=== PATIENT | female | born 1930 | race Two or more races ===

== ENCOUNTER → 2017-07-17 | Emergency (ER) | payer OTHER ==
[~2017-07-17] VITALS: Ht 165.1 cm; Wt 81.6 kg
[~2017-07-17] MED LIST: ADULT LOW DOSE81 MG; DILTIAZEM 24HR120 MG; GLIMEPIRIDE4 MG; HYZAAR 100/25 T1 TAB; LEVOTHROID137 MCG; METFORMIN HCL1000 MG; PERCOCET 5-3251 EACH PO; PNEU16DI2; SIMVASTATIN40 MG; SYNTHROID50 MCG
== END | disposition home or self-care (01) ==
LOC: ER 10:24
DX: S82.841A Displaced bimalleolar fracture of right lower leg, initial encounter for closed fracture (principal); S92.512A Displaced fracture of proximal phalanx of left lesser toe(s), initial encounter for closed fracture; M85.871 Other specified disorders of bone density and structure, right ankle and foot; W01.198A Fall on same level from slipping, tripping and stumbling with subsequent striking against other object, initial encounter; Y93.89 Activity, other specified; Y92.018 Other place in single-family (private) house as the place of occurrence of the external cause; Y99.8 Other external cause status

== ENCOUNTER 2017-07-20 15:23 | Outpatient (CLI) | payer OTHER ==
[~2017-07-20 15:23] MED LIST changes: -PERCOCET 5-3251 EACH PO
== END 2017-07-20 17:00 | disposition home or self-care (01) ==
LOC: RAD 15:23
DX: M25.571 Pain in right ankle and joints of right foot (principal)

== ENCOUNTER 2017-08-02 14:47 | Outpatient (CLI) | payer OTHER | END 2017-08-02 15:38 | disposition home or self-care (01) | LOC: RAD 501 14:47 | DX: S82.844D Nondisplaced bimalleolar fracture of right lower leg, subsequent encounter for closed fracture with routine healing (principal) ==

== ENCOUNTER → 2017-08-03 12:23 | Outpatient (CLI) | payer OTHER ==
[~2017-08-03 12:23] MED LIST changes: +PERCOCET 5-3251 EACH PO
== END | disposition home or self-care (01) ==
LOC: LAB 12:23 → RAD 12:23
DX: I10 Essential (primary) hypertension (principal); E11.9 Type 2 diabetes mellitus without complications; E03.8 Other specified hypothyroidism; E78.2 Mixed hyperlipidemia; D64.89 Other specified anemias; D68.8 Other specified coagulation defects; N39.0 Urinary tract infection, site not specified; E88.89 Other specified metabolic disorders; A49.02 Methicillin resistant Staphylococcus aureus infection, unspecified site; E83.42 Hypomagnesemia; Z76.89 Persons encountering health services in other specified circumstances; I49.8 Other specified cardiac arrhythmias

== ENCOUNTER 2017-08-07 06:47 | Day surgery (SDC) | payer OTHER ==
[~2017-08-07 06:47] MED LIST changes: -PERCOCET 5-3251 EACH PO
[2017-08-07] MEDS ORDERED: PERCOCET 5-3251 EACH PO (13:02)
== END 2017-08-07 16:20 | disposition home or self-care (01) ==
LOC: CIR.AMB 06:47
DX: S82.61XA Displaced fracture of lateral malleolus of right fibula, initial encounter for closed fracture (principal)

== ENCOUNTER 2017-09-05 09:26 | Outpatient (CLI) | payer OTHER ==
[~2017-09-05 09:26] MED LIST changes: +PERCOCET 5-3251 EACH PO
== END 2017-09-05 09:46 | disposition home or self-care (01) ==
LOC: RAD 501 09:26
DX: S82.61XD Displaced fracture of lateral malleolus of right fibula, subsequent encounter for closed fracture with routine healing (principal)

== ENCOUNTER 2017-10-10 08:54 | Outpatient (CLI) | payer OTHER | END 2017-10-10 09:13 | disposition home or self-care (01) | LOC: RAD 501 08:54 | DX: S82.61XD Displaced fracture of lateral malleolus of right fibula, subsequent encounter for closed fracture with routine healing (principal) ==

== ENCOUNTER 2017-11-22 13:23 | Outpatient (CLI) | payer OTHER | END 2017-11-22 13:26 | disposition home or self-care (01) | LOC: RAD 501 13:23 | DX: S82.61XD Displaced fracture of lateral malleolus of right fibula, subsequent encounter for closed fracture with routine healing (principal) ==

== ENCOUNTER 2018-03-08 14:32 | Emergency (ER) | payer OTHER ==
[~2018-03-08] VITALS: Ht 165.1 cm; Wt 83.9 kg
== END 2018-03-08 17:37 | disposition home or self-care (01) ==
LOC: ER 14:32
DX: I16.0 Hypertensive urgency (principal); I10 Essential (primary) hypertension; J06.9 Acute upper respiratory infection, unspecified; J11.1 Influenza due to unidentified influenza virus with other respiratory manifestations